=== PATIENT | female | born 1980 | race Two or more races ===

== ENCOUNTER 2017-03-16 01:17 | Emergency (ER) | payer OTHER ==
--- NOTE | ~2017-03-16 | CR72 ---
[facility] A Service of [facility] & [facility] & [facility] / [facility] RADIOLOGY TEXT RESULTS PATIENT: RAJIV SALINAS LOCATION: [facility] : [birth year] UNIT #: [id number] AGE: [address]: Mikey Russell MD SEX: F ORDER DR: [id number] [facility] [address] [place], [place] [address] [id number] E MR#: [id number] #: [id number] NAME: RAJIV SALINAS : 1980 SEX: F STUDY DATE/TIME: 03/16/2017 1:49 UNIT: [facility] ROOM: STUDY DESCRIPTION: CR Chest Single View Portable Attending Physician: Mikey Russell Ordering Physician: Phillip Russell M.D. Primary Care Physician: Kelly Duran A.P.R.N. MEDICAL IMAGING REPORT This report is preliminary unless electronic signature is present EXAM Chest x-ray, 03/16/2017 HISTORY 36-year-old female in the ED complaining of 2-day history of shortness of air, chest pain and cough. TECHNIQUE AP portable chest x-ray. FINDINGS Heart size and pulmonary vascularity are within normal limits given AP portable technique. Shallow lung expansion. The lungs appear clear. No visible pulmonary infiltrate or pleural effusion. IMPRESSION No active disease. Dictated by... José Pittman M.D. THIS IS AN ELECTRONICALLY VERIFIED REPORT José Pittman M.D. at 03/16/2017 6:08 AM OKSANA/donna TD: 03/16/2017 02:38 JOB #: [id number] MEDICAL IMAGING REPORT Page 1 of 1 COPY
--- NOTE | ~2017-03-16 | EKG ---
PATIENT: RAJIV SALINAS UNIT #: [id number] Ventricular Rate: 58 BPM Atrial Rate: 58 BPM P-R Interval: 148 ms QRS Duration: 80 ms Q-T Interval: 400 ms QTC Calculation(Bezet): 392 ms P [place]: 56 degrees Calculated R [place]: 16 degrees Calculated T [place]: 37 degrees Diagnosis Line: Sinus bradycardia Diagnosis Line: Possible Left atrial enlargement Diagnosis Line: Borderline ECG Diagnosis Line: No previous ECGs available Diagnosis Line: Confirmed by ZACHARY STEWART MD ([id number]) on 03/17/2017 Diagnosis Line: 11:31:57 PM INTERPRETING MD: PAT WEINSTEIN
[2017-03-16 02:04] LABS: POC - CKMB 1.6 ng/mL (0.0-7.9); POC - TROPONIN <0.05 ng/mL (<=0.05)
[2017-03-16 02:05] LABS: BASOPHIL# 0.3 X10e3 (0-0.3); BASOPHIL% 2.8 % (0-2.5); EOSINOPHIL# 0.3 X10e3 (0-0.7); EOSINOPHIL% 2.5 % (0.0-7.0); HEMATOCRIT 42.4 % (35.0-45.0); HEMOGLOBIN 14.2 gm/dL (12.0-16.0); LYMPHOCYTE# 3.6 X10e3 (1.0-3.5); LYMPHOCYTE% 35.1 % (17.0-45.0); MEAN CELL VOLUME 85.4 FL (83-96); MEAN CORPUSCULAR HEMOGLOBIN 28.6 PG (28-34); MEAN CORPUSCULAR HGB CONC 33.5 g/dL (30-36); MEAN PLATELET VOLUME 8.6 FL (6.5-11.5); MONOCYTE# 0.8 X10e3 (0-1.0); MONOCYTE% 7.5 % (3.0-12.0); NEUTROPHIL# 5.3 X10e3 (1.5-7.1); NEUTROPHIL% 52.1 % (40-75); PLATELET COUNT 248 X10e3 (140-420); RED BLOOD COUNT 4.97 X10e (3.90-5.30); RED CELL DISTRIBUTION WIDTH 13.8 % (11.0-15.5); WHITE BLOOD COUNT 10.2 X10e3 (4.0-10.5)
[2017-03-16 02:13] LABS: DIFF IND NO
[2017-03-16 02:28] LABS: BUN/CREATININE RATIO 33.33; CALCIUM SERUM 9.3 mg/dL (8.4-10.2); CREATININE SERUM 0.6 mg/dL (0.6-1.4); GLOM FILT RATE Estimated 117.3 mL/min (>60); POTASSIUM 3.8 mmol/L (3.5-5.1)
[2017-03-16 04:36] LABS: POC - CKMB 1.4 ng/mL (0.0-7.9); POC - TROPONIN <0.05 ng/mL (<=0.05)
== END 2017-03-16 04:50 | disposition home or self-care (01) ==
LOC: CED 01:17
PROVIDERS: Emergency Medicine
DX: R07.89 Other chest pain (principal); F17.210 Nicotine dependence, cigarettes, uncomplicated; Z98.890 Other specified postprocedural states
CPT/HCPCS: 36415; 71010; 80048; 82553; 84484; 85025; 93005; 96374; 99285; J1885